=== PATIENT | male | born 1975 | race Caucasian/White ===

== ENCOUNTER 2019-07-13 12:32 | Emergency (ER) | payer MEDICAID ==
[~2019-07-13] VITALS: Ht 170.2 cm; Wt 74.0 kg
[2019-07-13] MEDS ORDERED: MORPHINE SULFATE 4 MG/ML CPJ (NOT FOR IM USE) IV STA (16:15)
[2019-07-13] MEDS ORDERED: ONDANSETRON HCL 4MG/2ML INJ IV STA (16:15)
[2019-07-13] MEDS ORDERED: SODIUM CHLORIDE 0.9% 1,000 ML IV ONE (16:15)
[2019-07-13 16:42] LABS: HEMATOCRIT. 38.8 % (42.0-52.0); LYMPHOCYTES % 39.2 % (20.0-50.0); MEAN CORPUSCULAR HEMOGLOBIN 29.7 pg (28.0-32.0); MEAN CORPUSCULAR VOLUME 88.7 fL (80.0-94.0); MEAN PLATELET VOLUME 8.6 fl (7.4-10.4); MONOCYTES % 8.2 % (2.0-8.0); NEUTROPHILS % 42.6 % (40.0-76.0); PLATELET 214 x1000/uL (130-400); RED BLOOD CELL COUNT 4.38 mill/uL (4.7-6.1); RED CELL DISTRIBUTION WIDTH 13.7 % (11.6-14.6)
[2019-07-13 16:46] LABS: CHLORIDE 109 mEq/L (98-107)
[2019-07-13 16:47] LABS: PROTHROMBIN TIME 10.1 sec (9.6-11.0)
[2019-07-13 18:13] LABS: CLARITY URINE CLEAR (CLEAR); COLOR URINE YELLOW (YELLOW); KETONES URINE TRACE (NEGATIVE); LEUKOCYTE ESTERASE URINE NEGATIVE (NEGATIVE); NITRITE URINE NEGATIVE (NEGATIVE); OCCULT BLOOD URINE NEGATIVE (NEGATIVE); PH URINE 5.5 (4.5-8.0); PROTEIN URINE NEGATIVE (NEGATIVE); SPECIFIC GRAVITY URINE 1.013 (1.005-1.030); UROBILINOGEN URINE 0.2 E.U./dL (0.2-1.0)
[2019-07-13 19:15] VITALS: BP 127/72
== END 2019-07-13 19:26 | disposition home or self-care (01) ==
LOC: ER 12:32
DX: N43.3 Hydrocele, unspecified (principal); R19.7 Diarrhea, unspecified; E11.9 Type 2 diabetes mellitus without complications; I10 Essential (primary) hypertension; Z90.49 Acquired absence of other specified parts of digestive tract
CPT/HCPCS: 36415; 76870; 80053; 81003; 83690; 85025; 85610; 93976; 96361; 96374; 96375; 99284; J2270; J2405; J7030